=== PATIENT | female | born 1950 | race Caucasian/White ===

== ENCOUNTER → 2019-06-13 | Outpatient (CLI) | payer OTHER ==
--- NOTE | 2019-06-13 18:31 | RAD ---
DATE: 06/13/2019 EXAM: MAMMO GINA SCREENING BILATERAL HISTORY: Routine screening. Left breast biopsy in 2004. COMPARISON: 03/07/2015 mammogram This study was interpreted with the benefit of Computerized Aided Detection (CAD). Breast Density: HETERO The breast parenchyma is heterogenously dense, which could reduce sensitivity of mammography. Breast parenchyma level C. FINDINGS: Small masses have mostly remained stable. Other small new well defined masses are present in the interval but without aggressive features. Centimeters these are present bilaterally at the lower axillary level and likely represent lymph nodes. There is a left central 12:00 retroareolar mass which is new since the prior exam likely representing a cyst considering its low-density. It measures 1.1 cm in diameter and is present 5.4 cm from the nipple. No suspicious calcification or distortion. IMPRESSION: Indeterminate left central 12:00 breast mass. BI-RADS CATEGORY: 0 INCOMPLETE: NEEDS ADDITIONAL IMAGING EVALUATION AND/OR PRIOR MAMMOGRAMS FOR COMPARISON. RECOMMENDED FOLLOW-UP: ADD ADDITIONAL IMAGING. Ultrasound is recommended for the left central 12:00 retroareolar mass lesion which is new in the interval. PQRS compliance statement: Patient information was entered into a reminder system with a target due date for the next mammogram. Mammography is a sensitive method for finding small breast cancers, but it does not detect them all and is not a substitute for careful clinical examination. A negative mammogram does not negate a clinically suspicious finding and should not result in delay in biopsying a clinically suspicious abnormality. "Our facility is accredited by the [employer] Mammography Program."
== END | disposition home or self-care (01) ==
LOC: MAMMO 12:24
PROVIDERS: ATTEND Family Medicine
DX: Z12.31 Encounter for screening mammogram for malignant neoplasm of breast (principal); N63.21 Unspecified lump in the left breast, upper outer quadrant; N63.10 Unspecified lump in the right breast, unspecified quadrant
CPT/HCPCS: 77063; 77067

== ENCOUNTER → 2019-06-15 | Outpatient (CLI) | payer OTHER ==
--- NOTE | 2019-06-15 12:27 | RAD ---
Examination: BREAST LEFT History: Abnormal mammogram Comparison/Correlation: 06/13/2019 screen mammographic exam Findings: At the left breast 12:00 region 2 cm from the nipple, there is a 1.1 cm x 0.7 cm x 0.7 cm tall anechoic structure corresponding to finding on mammography. No flow evident involving it. Impression: BI-RADS Category 2-benign. A cyst is present corresponding to the finding on mammography. Annual mammographic screening recommended. Electronically signed by: Jignesh Martinez MD (06/15/2019 12:24 PM) [facility]
== END | disposition home or self-care (01) ==
LOC: US 12:28
PROVIDERS: ATTEND Family Medicine
DX: N60.02 Solitary cyst of left breast (principal); N63.0 Unspecified lump in unspecified breast
CPT/HCPCS: 76641

== ENCOUNTER → 2020-04-01 | Outpatient (CLI) | payer MEDICARE ==
--- NOTE | 2020-04-01 10:31 | RAD ---
DATE: 04/01/2020 10:00 AM EXAM: MAMMO GINA JOHN BILAT HISTORY: Diffuse left breast pain. Requested preclinical imaging evaluation prior to breast specialist consultation. COMPARISON: Bilateral mammograms of 07/25/2007, 07/03/2009, 03/07/2015 and 06/13/2019 Bilateral CC and MLO views of the breasts were performed. Bilateral breast tomosynthesis was performed in CC and MLO projections. This study was interpreted with the benefit of Computerized Aided Detection (CAD). FINDINGS: Breast Density: HETERO The breast parenchyma Is heterogeneously dense, which could reduce sensitivity of mammography. Breast parenchyma level C No suspicious masses, microcalcifications or architectural distortion is present to suggest malignancy in either breast. The visualized axillae are unremarkable. IMPRESSION: No mammographic evidence of malignancy. BI-RADS CATEGORY: 1 NEGATIVE RECOMMENDED FOLLOW-UP: 12M 12 MONTH FOLLOW-UP Annual screening mammography is recommended, unless clinically indicated sooner based on symptoms or change in physical exam. PQRS compliance statement: Patient information was entered into a reminder system with a target due date for the next mammogram. Mammography is a sensitive method for finding small breast cancers, but it does not detect them all and is not a substitute for careful clinical examination. A negative mammogram does not negate a clinically suspicious finding and should not result in delay in biopsying a clinically suspicious abnormality. "Our facility is accredited by the [employer] Mammography Program."
== END | disposition home or self-care (01) ==
LOC: MAMMO 09:27
PROVIDERS: ATTEND Family Medicine
DX: R92.2 Inconclusive mammogram (principal)
CPT/HCPCS: 77066; G0279; 77062

== ENCOUNTER 2021-03-11 10:49 | Emergency (ER) | payer MEDICARE ==
[~2021-03-11] VITALS: Ht 165.1 cm; Wt 76.8 kg
--- NOTE | 2021-03-11 11:47 | PHYS DOC ---
Past Medical History Past Surgical History: Cholecystectomy, Tubal ligation, Other Additional Past Surgical Histo: D&C Smoking Status: Never Smoker Alcohol Use: None General Adult EDM: Chief Complaint: MULTIPLE COMPLAINTS HPI: HPI: Patient is a 70 year old female who presents with since March 03 she has had fever, weakness, muscle spasms, cough, epigastric pain, nausea, decreased appetite. Patient states that she has not been eating and drinking due to every time she took a drink she will start to have epigastric pain. She states that she has been having muscle spasms in her chest. She states is very painful when she coughs. She states that she does have slight shortness of air. She states that if she coughs up anything it is because she is coughing so hard that she gags it. She states that up until yesterday she had been running a fever of 101. She has not taken any Tylenol or ibuprofen today. States she called her doctor and they told her to come to the emergency room to be evaluated. She has not gotten her Covid vaccine or test. She has history of cholecystectomy, D&C and a tubal ligation. Patient denies vomiting, diarrhea, syncope, dizziness, headache, focal weakness, numbness or tingling. Denies any pain at this time. She states she is just uncomfortable and rates that at a 8 out of 10. Review of Systems: Review of Systems: Constitutional: + fever or chills. [] Eyes: Denies change in visual acuity. [] HENT: Denies nasal congestion or sore throat. [] Respiratory: + cough or +shortness of breath. [] Cardiovascular: + chest pain from muscle spasm and cough or denies edema. [] GI: + Epigastric abdominal pain, +nausea, denies vomiting, bloody stools or diarrhea. + Decreased appetite [] : Denies dysuria. [] Musculoskeletal: Denies back pain or joint pain. + Generalized muscle weakness. + Muscle spasms [] Integument: Denies rash. [] Neurologic: Denies headache, focal weakness or sensory changes. [] Endocrine: Denies polyuria or polydipsia. [] Lymphatic: Denies swollen glands. [] Psychiatric: Denies depression or anxiety. [] Heart Score: C/O Chest Pain: No HEART Score for Chest Pain: HEART Score for Chest Pain Response (Comments) Value History Slighlty/Non-Suspicious 0 ECG Normal 0 Age > 65 2 Risk Factors No Risk Factors 0 Troponin < Normal Limit 0 Total 2 Risk Factors: Risk Factors: DM, Current or recent (<one month) smoker, HTN, HLP, family history of CAD, obesity. Risk Scores: Score 0 - 3: 2.5% MACE over next 6 weeks - Discharge Home Score 4 - 6: 20.3% MACE over next 6 weeks - Admit for Clinical Observation Score 7 - 10: 72.7% MACE over next 6 weeks - Early Invasive Strategies Allergies: Allergies: Allergies Coded Allergies Type Severity Reaction Last Updated Verified pseudoephedrine Allergy Intermediate 03/11/21 Yes Physical Exam: PE: Constitutional: Well developed, well nourished, no acute distress, non-toxic appearance. [] HENT: Normocephalic, atraumatic, bilateral external ears normal, oropharynx moist, no oral exudates, nose normal. [] Eyes: PERRLA, EOMI, conjunctiva normal, no discharge. [] Neck: Normal range of motion, no tenderness, supple, no stridor. [] Cardiovascular:Heart rate regular rhythm, no murmur [] Lungs & Thorax: Bilateral upper breath sounds clear and diminished lower to auscultation [] Abdomen: Bowel sounds normal, soft, no tenderness, no masses, no pulsatile masses. [] Skin: Warm, dry, no erythema, no rash. [] Back: No tenderness, no CVA tenderness. [] Extremities: No tenderness, no cyanosis, no clubbing, ROM intact, no edema. [] Neurologic: Alert and oriented X 3, normal motor function, normal sensory function, no focal deficits noted. [] Psychologic: Affect normal, judgement normal, mood normal. [] Current Patient Data: Vital Signs: Vital Signs Date Time Temp Pulse Resp B/P (MAP) Pulse Ox O2 Delivery O2 Flow Rate FiO2 03/11/21 11:20 98.3 89 18 159/68 96 Room Air 98.3 EKG: EK and read by Dr. Madrigal is sinus rhythm and no STEMI Radiology/Procedures: Radiology/Procedures: [] Impression: [facility] [address] [place], [place] [id number] IMAGING REPORT Signed PATIENT: CORDELL SARMIENTO JACCOUNT: [id number] : 1950 LOCATION: ER AGE: 70 SEX: F EXAM STATUS: REG ER ORD. PHYSICIAN: DEON LOPEZ APRN REASON: epigastric pain, nausea PROCEDURE: ACUTE ABDOMEN SERIES EXAM: Abdomen series. HISTORY: Pain. COMPARISON: None. FINDINGS: A frontal view of the chest and 2 views of the abdomen and pelvis are obtained. There is no infiltrate, pleural effusion or pneumothorax. There are chronic appearing interstitial changes with lower lobe predominant atelectasis or scarring. There is a healed left fourth rib fracture. The heart is normal in size. There are air-filled loops of bowel throughout the abdomen. There is no transiti on point to suggest obstruction. There is no free air. There are cholecystectomy clips. There is a healed right inferior pubic ramus fracture with adjacent heterotopic ossification. There is degenerative change at the lower lumbar levels. IMPRESSION: 1. No acute pulmonary finding. 2. Nonspecific bowel gas pattern, without evidence of obstruction. Electronically signed by: Hellen Richter MD (03/11/2021 12:02 PM) [id number] DICTATED and SIGNED BY: HELLEN RICHTER MD DATE: 03/11/21 [id number] Course & Med Decision Making: Course & Med Decision Making Pertinent Labs and Imaging studies reviewed. (See chart for details) COVID-19 CRITERIA: The patient was evaluated during the global COVID-19 pandemic, and that diagnosis was suspected/considered upon their initial presentation. Their evaluation, treatment and testing was consistent with current guidelines for patients who present with complaints or symptoms that may be related to COVID-19. See HPI. Alert and oriented x4. Ambulatory with a steady gait. Speaks in full clear sentences. Abdomen soft and nontender. Lungs are clear in upper lobes and diminished in lower lobes. Afebrile here today. Blood work unremarkable. Chest x-ray shows no acute findings. She is tested for Covid. I will send her home with nausea medication, Medrol Dosepak and albuterol inhaler. [] Dragon Disclaimer: Dragon Disclaimer: This electronic medical record was generated, in whole or in part, using a voice recognition dictation system. COVID-19 Patient Risks: Age 65 or older: Yes Sign of co-morbidity: No Exp to person + for COVID: No Exp to PUI: No Lower respiratory symptoms: Yes Fever: Yes Other: Yes (nausea) PPE Use: Full PPE with N95 mask or PAPR: Yes Departure Departure Impression: Primary Impression: Cough Additional Impressions: Weakness Fever Qualified Codes: R50.9 - Fever, unspecified Epigastric discomfort Person under investigation for COVID-19 Disposition: HOME / SELF CARE / HOMELESS Condition: STABLE Referrals: LUI CORTES (PCP) Patient Instructions: Cough, Adult, Fever, Adult Additional Instructions: Follow-up with your primary care provider. Drink plenty of fluids. Take medication as prescribed and with food. If anything worsens you can return to the emergency room. Scripts Albuterol Sulfate (PROAIR HFA INHALER) 8.5 Gm Hfa.aer.ad 1 PUFF INH PRN Q6HRS PRN for SHORTNESS OF BREATH, #1 EACH 0 Refills Prov: DEON LOPEZ APRN 03/11/21 Methylprednisolone (MEDROL) 4 Mg Tab.ds.pk 1 PKG PO UD, #1 PKG Prov: DEON LOPEZ APRN 03/11/21 Benzonatate (TESSALON PERLE) 100 Mg Capsule 1 CAP PO TID, #30 CAP Prov: DEON LOPEZ 03/11/21 DEON LOPEZ [employer] MA[employer]GER Mar 11, 2021 11:46
--- NOTE | 2021-03-11 12:04 | RAD ---
EXAM: Abdomen series. HISTORY: Pain. COMPARISON: None. FINDINGS: A frontal view of the chest and 2 views of the abdomen and pelvis are obtained. There is no infiltrate, pleural effusion or pneumothorax. There are chronic appearing interstitial changes with lower lobe predominant atelectasis or scarring. There is a healed left fourth rib fracture. The heart is normal in size. There are air-filled loops of bowel throughout the abdomen. There is no transition point to suggest o bstruction. There is no free air. There are cholecystectomy clips. There is a healed right inferior p ubic ramus fracture with adjacent heterotopic ossification. There is degenerative change at the lower lumbar levels. IMPRESSION: 1. No acute pulmonary finding. 2. Nonspecific bowel gas pattern, without evidence of obstruction. Electronically signed by: Hellen James MD (03/11/2021 12:02 PM) [id number]
[2021-03-11] MEDS: FAMOTIDINE 20 MG/2 ML VIAL IVP ONE (12:12)
[2021-03-11] MEDS: IV NORMAL SALINE 1000ML BAG 1,000 ML IV SCH (12:12)
[2021-03-11] MEDS: methylPREDNISolone SOD SUCC PF 125 MG/2 ML VIAL. IV ONE (12:13)
[2021-03-11] MEDS: ONDANSETRON PF 4 MG/2 ML VIAL. IVP ONE (12:13)
--- NOTE | 2021-03-11 12:23 | EKG ---
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
[2021-03-11 12:36] LABS: BASO % 0 % (0-3); EOS % 0 % (0-3); HEMATOCRIT 40.4 % (36.0-47.0); HEMOGLOBIN 13.9 g/dL (12.0-15.5); LYMPH % 29 % (24-48); MEAN CORPUSCULAR HEMOGLOBIN 30 pg (25-35); MEAN CORPUSCULAR HGB CONC 34 g/dL (31-37); MEAN CORPUSCULAR VOLUME 89 fL (79-100); MONO # 0.3 x10^3/uL (0.0-1.1); MONO % 9 % (0-9); NEUT # 2.1 x10^3/uL (1.8-7.7); NEUT % 62 % (31-73); PLATELET COUNT 167 x10^3/uL (140-400); RED BLOOD COUNT 4.56 x10^6/uL (3.50-5.40); RED CELL DISTRIBUTION WIDTH 13.3 % (11.5-14.5); WHITE BLOOD COUNT 3.5 x10^3/uL (4.0-11.0)
[2021-03-11 12:37] LABS: BILIRUBIN,URINE NEGATIVE (NEG); CLARITY,URINE CLEAR; COLOR,URINE YELLOW; NITRITE,URINE NEGATIVE (NEG); PROTEIN,URINE NEGATIVE (NEG-TRACE); UROBILINOGEN,URINE 0.2 mg/dL (0.2 mg/dL)
[2021-03-11] MEDS: ALBUTEROL SULFATE 2.5 MG/3 ML NEBU. NEB ONE (12:41)
[2021-03-11 12:45] LABS: BACTERIA,URINE 0 /HPF (0-FEW); RBC,URINE 0 /HPF (0-2); WBC,URINE RARE /HPF (0-4)
[2021-03-11 12:48] LABS: CALCIUM 8.4 mg/dL (8.5-10.1); CREATININE 0.7 mg/dL (0.6-1.0); GFR 82.7; POTASSIUM 4.1 mmol/L (3.5-5.1)
[2021-03-11 12:54] LABS: ALBUMIN 3.4 g/dL (3.4-5.0); ALBUMIN/GLOBULIN RATIO 0.9 (1.0-1.7); MAGNESIUM 1.9 mg/dL (1.8-2.4); TOTAL BILIRUBIN 0.4 mg/dL (0.2-1.0)
[2021-03-11] MEDS ORDERED: ALBU2.5V8 INH (13:09)
[2021-03-11] MEDS ORDERED: METH4TAB2 PO (13:09)
[2021-03-11] MEDS ORDERED: BENZ100C PO (13:09)
[2021-03-11 13:50] VITALS: BP 148/66
== END 2021-03-11 13:50 | disposition home or self-care (01) ==
LOC: ER 10:49
DX: U07.1 COVID-19 (principal); R05 Cough; R50.9 Fever, unspecified; R10.13 Epigastric pain; R53.1 Weakness; Z90.49 Acquired absence of other specified parts of digestive tract; Z98.51 Tubal ligation status; Z88.8 Allergy status to other drugs, medicaments and biological substances
CPT/HCPCS: 36415; 74022; 80053; 81001; 83690; 83735; 84484; 85025; 93005; 94640; 96361; 96374; 96375; 99285; J2405; J2930; J3490; J7030; J7613; U0003; U0005

== ENCOUNTER → 2021-04-30 | Outpatient (CLI) | payer MEDICARE ==
[~2021-04-30] MED LIST: ALBU2.5V8 INH; BENZ100C PO; METH4TAB2 PO
--- NOTE | 2021-04-30 17:04 | RAD ---
CLINICAL INDICATION: CORDELL SARMIENTO, who is 70 years of age, presents for imaging evaluation of a region of pain within the left breast COMPARISON: Prior mammographic imaging dating back to TECHNIQUE: Full field craniocaudal and mediolateral oblique images of both breasts were obtained usin g digital technique with tomosynthesis and also analyzed with computer-aided detection software. BREAST COMPOSITION: Category C: The breast tissue is heterogeneously dense, which could obscure detec tion of small masses. MAMMOGRAM FINDINGS: There are no suspicious masses, microcalcifications, or architectural distortion to suggest malignanc y in the either breast. The visualized axilla appears unremarkable. Given the region of breast pain sonographic imaging was obtained. ULTRASOUND FINDINGS: Targeted ultrasound of the patient detected area of concern was performed. 12:00 position, 4 cm from the nipple: A hypoechoic irregular mass and non circumscribed margins is pr esent measuring 0.5 x 0.5 x 0.5 cm IMPRESSION: 1. No mammographic evidence of malignancy in either breast. RECOMMENDATION: Biopsy recommended. The results were discussed with the patient at the end of the procedure. BIRADS 4: SUSPICIOUS This study was interpreted with the benefit of Computerized Aided Detection (CAD). ?Your patient's mammogram demonstrates that she has dense breast tissue (breast density category C or D), which could hide abnormalities, and if she has other risk factors for breast cancer that have be en identified, she might benefit from supplemental screening tests that may be suggested by you as he r ordering physician. Dense breast tissue, in and of itself, is a relatively common condition. Theref ore, this information is not provided to cause undue concern, but rather to raise your awareness and to promote discussion with your patient regarding the presence of other risk factors, in addition to dense breast tissue. Your patient's mammography results will be sent to her. Patient information is entered into the reminder system with a target due date for the next screening mammogram. Mammography is the most sensitive method for finding small breast cancers, but it does not detect the m all and is not a substitute for careful clinical examination. A negative mammogram does not negate a clinically suspicious finding and should not result in delay in biopsying a clinically suspicious a bnormality. "Our facility is accredited by the [employer] Mammography Program." Electronically signed by: Cristhian Perez MD (04/30/2021 5:02 PM) [id number]
== END ==
LOC: MAMMO 10:18
PROVIDERS: ATTEND Obstetrics & Gynecology
DX: N63.21 Unspecified lump in the left breast, upper outer quadrant (principal)
CPT/HCPCS: 76641; 77066; G0279; 77062